=== PATIENT | female | born 1975 | race Caucasian/White ===

== ENCOUNTER → 2020-05-24 13:12 | Outpatient (BNVA) | payer BC, OTHER, SELFPAY | PROVIDERS: Family Provider Nurse Practitioner; PCP Nurse Practitioner; Visit Provider Nurse Practitioner Family | DX: Z11.59 Encounter for screening for other viral diseases (principal); Z20.828 Contact with and (suspected) exposure to other viral communicable diseases; J06.9 Acute upper respiratory infection, unspecified | CPT/HCPCS: 87635 ==

== ENCOUNTER → 2021-06-06 15:55 | Outpatient (BNVA) | payer BC, OTHER, SELFPAY | PROVIDERS: Family Provider Nurse Practitioner; PCP Nurse Practitioner; Visit Provider Nurse Practitioner | DX: E11.65 Type 2 diabetes mellitus with hyperglycemia (principal) | CPT/HCPCS: 80053; 80061; 81000; 83036; 83721; 85025 ==

== ENCOUNTER → 2021-10-17 11:28 | Outpatient (BNVA) | payer BC, OTHER, SELFPAY | PROVIDERS: Family Provider Nurse Practitioner; PCP Nurse Practitioner; Visit Provider Nurse Practitioner | DX: E11.65 Type 2 diabetes mellitus with hyperglycemia (principal); G43.909 Migraine, unspecified, not intractable, without status migrainosus; I10 Essential (primary) hypertension; F41.8 Other specified anxiety disorders; R59.0 Localized enlarged lymph nodes | CPT/HCPCS: 80053; 80061; 83036 ==

== ENCOUNTER → 2022-01-24 13:41 | Outpatient (BNVA) | payer BC, OTHER, SELFPAY | PROVIDERS: Family Provider Nurse Practitioner; PCP Nurse Practitioner; Visit Provider Nurse Practitioner | DX: E11.65 Type 2 diabetes mellitus with hyperglycemia (principal); Z79.4 Long term (current) use of insulin; E55.9 Vitamin D deficiency, unspecified; G43.909 Migraine, unspecified, not intractable, without status migrainosus; I10 Essential (primary) hypertension; F41.8 Other specified anxiety disorders; M77.50 Other enthesopathy of unspecified foot and ankle; R59.0 Localized enlarged lymph nodes | CPT/HCPCS: 80053; 82306; 83036 ==

== ENCOUNTER 2022-04-12 14:38 | Outpatient (CLI) | payer BC, OTHER, SELFPAY ==
--- NOTE | 2022-04-12 14:45 | CT_ITS ---
WS: [id number] CT NECK TECHNIQUE: Contrast-enhanced CT of the neck with coronal and sagittal reformatted images. CLINICAL INFORMATION: R59.0 - Localized enlarged lymph nodes COMPARISON: Ultrasound thyroid and CT July 16, 2017 DLP: 299.[address] scans at [facility] [place] use at least one of these dose optimization techniques: automated e xposure control; mA and/or kV adjustment per patient size (includes targeted exams where dose is matc hed to clinical indication); or iterative reconstruction. FINDINGS: Reported palpable abnormality over the RIGHT proximal clavicle. Palpable marker in this area. RIGHT c lavicle is normal in appearance. AC joint is not included on this examination. Normal sternoclavicula r joint. Tiny lymph node or serpiginous vein in this area deep to the palpable marker. No underlying suspicious abnormalities in this area. Normal underlying sternocleidomastoid. Heterogeneous dense bilateral parotid glands with intraparotid lymph nodes.Correlation with history o f Sjogren's syndrome. Normal submandibular glands. Incidental intraparotid lymph node similar to 2017 . Normal posterior nasopharynx. Normal parapharyngeal fat. Submandibular glands are normal. A few pro minent submandibular lymph nodes also similar to previous. Normal vallecula and piriform sinuses. No evidence of supraglottic or glottic mass. Multinodular thyroid similar to the prior examinations. Keegan cified RIGHT thyroid nodule. Lung apices are well aerated. Prominent cervical chain lymph nodes although not pathologically enlarg ed. This is similar to 2017. Small sclerotic lesion in the C7 vertebral body is stable. CT/CT neck w con* [id number] IMPRESSION: 1. In the area of palpable concern, RIGHT lower neck, no suspicious underlying abnormalities. Tiny incidental underlying tortuous vein or lymph node. Underly ing clavicle is normal. No suspicious abnormalities in this area. 2. No other significant changes compared to previous. 3. Heterogeneous dense bilateral parotid glands with prominent intraparotid ly mph nodes similar to the prior examination. This is nonspecific and may be inci dental but can be seen with Sjogren's syndrome or chronic parotiditis 4. No evidence of supraglottic or glottic mass. 5. Multinodular thyroid. 6. No pathologic cervical lymphadenopathy.
[2022-04-12] MEDS: iohexol 350 mg/mL 100 mL Btl IV (14:58)
== END 2022-04-12 14:39 | disposition home or self-care (01) ==
LOC: RAD 14:43
PROVIDERS: PCP Nurse Practitioner; Visit Provider Nurse Practitioner
DX: R59.0 Localized enlarged lymph nodes (principal); E04.2 Nontoxic multinodular goiter
CPT/HCPCS: 70491

== ENCOUNTER → 2022-06-20 14:42 | Outpatient (BNVA) | payer BC, OTHER, SELFPAY | PROVIDERS: PCP Nurse Practitioner; Visit Provider Nurse Practitioner | DX: E11.65 Type 2 diabetes mellitus with hyperglycemia (principal); E55.9 Vitamin D deficiency, unspecified; Z79.4 Long term (current) use of insulin | CPT/HCPCS: 80053; 80061; 82306; 83036; 83721 ==

== ENCOUNTER → 2022-06-28 13:40 | Outpatient (BNVA) | payer BC, OTHER, SELFPAY | PROVIDERS: PCP Nurse Practitioner; Visit Provider Podiatrist Foot & Ankle Surgery | DX: M76.61 Achilles tendinitis, right leg (principal); E11.65 Type 2 diabetes mellitus with hyperglycemia; Z79.4 Long term (current) use of insulin | CPT/HCPCS: 73630 ==

== ENCOUNTER → 2022-09-19 16:41 | Outpatient (BNVA) | payer BC, OTHER, SELFPAY | PROVIDERS: PCP Nurse Practitioner; Visit Provider Nurse Practitioner | DX: E11.65 Type 2 diabetes mellitus with hyperglycemia (principal); Z79.4 Long term (current) use of insulin | CPT/HCPCS: 80053; 80061; 81000; 83036 ==

== ENCOUNTER → 2022-10-03 15:30 | Outpatient (BNVA) | payer BC, OTHER, SELFPAY | PROVIDERS: PCP Nurse Practitioner; Visit Provider Nurse Practitioner | DX: K62.5 Hemorrhage of anus and rectum (principal) | CPT/HCPCS: 85025 ==

== ENCOUNTER 2022-11-15 05:46 | Day surgery (SDC) | payer BC, OTHER, SELFPAY ==
[2022-11-13 11:55] VITALS: BMI 45.7
[2022-11-15] MEDS: sodium chloride 0.9% 1,000 ML 30 ML IV (06:12)
[2022-11-15 06:14] VITALS: BP 125/81; PULSE 89; RESP 18; TEMP 36.2; O2SAT 97
[2022-11-15 06:23] LABS: Glucose Point of Care 147 mg/dL (70-110)
--- NOTE | 2022-11-15 06:57 | ANES.PREANE2 ---
Pre-Anesthetic Assessment Height/Weight: Height 1.65 m Weight 124.738 kg Temp Pulse Resp BP Pulse Ox O2 Del Method 97.1 F L 89 18 125/81 97 11/15/22 06:14 11/15/22 06:14 11/15/22 06:14 11/15/22 06:14 11/15/22 06:14 11/15/22 06:14 Preop Diagnosis: Hematachezia Operation Date: 11/15/22 07:30 Proposed Procedures p [id number] EGD [id number] Colonoscopy K92.1(Not Applicable) - Marc Doty DO s Colonoscopy(Not Applicable) - Marc Doty DO Was Beta Agatha taken within 24 hours: Yes Was Clonidine taken within 24 hours: N/A Last intake: Intake Last Liquid Date 11/14/22 Last Liquid Time 23:00 Last Solid Date 11/13/22 Last Solid Time 19:00 Social No alcohol and No tobacco Exam alert, oriented x 3, clear to auscultation bilaterally and regular rate & rhythm Airway Submandibular: within normal limits Cervical ROM: within normal limits Mallampati: Class II Dentition: full History/ROS No significant history except as noted and No significant complaints Pulmonary None reported CV/HEM Hypertension None reported Hepatic None reported GI None reported Metabolic Diabetes Mellitus and Morbid Obesity [facility] [place]/[facility] None reported Neuropsych None reported Anesthetic Plan ASA status: 3 Anesthesia: Anesthesia Evaluation and MAC Risk of > 500 ml blood loss (7ml/kg in children): No Medications/Allergies Home Medications Medication Instructions Recorded Confirmed Last Taken Type pen needle, diabetic 33 gauge x #100 ea 11/06/21 11/15/22 11/14/22 Rx 5/32 CPAP machine and supplies #1 ea 06/20/22 11/15/22 11/14/22 Rx atorvastatin 40 mg tablet (Lipitor) 40 mg PO DAILY #30 tabs 09/19/22 11/15/22 11/14/22 Rx bupropion HCl 150 mg tablet,12 hr 150 mg PO BID #60 tabs 09/19/22 11/15/22 11/14/22 Rx sustained-release (Wellbutrin SR) dapagliflozin 5 mg tablet (Farxiga) 5 mg PO QAM #30 tabs 09/19/22 11/15/22 11/14/22 Rx doxepin 10 mg capsule 10 mg PO TID #90 caps 09/19/22 11/15/22 11/14/22 Rx fenofibrate nanocrystallized 145 145 mg PO DAILY #30 tabs 09/19/22 11/15/22 11/14/22 Rx mg tablet (Tricor) fluconazole 150 mg tablet 150 mg PO .monthly #1 tab 09/19/22 11/15/22 11/14/22 Rx (Diflucan) fluoxetine 20 mg capsule (Prozac) 20 mg PO BID #60 caps 09/19/22 11/15/22 11/14/22 Rx icosapent ethyl 1 gram capsule 2 g PO BID #120 caps 09/19/22 11/15/22 11/14/22 Rx (Vascepa) insulin detemir U-100 100 unit/mL 60 unit (0.6 mL) SUBCUT DAILY #15 09/19/22 11/15/22 11/14/22 Rx (3 mL) subcutaneous pen (Levemir mL FlexTouch U-100 Insulin) lisinopril 40 mg tablet 40 mg PO DAILY #30 tabs 09/19/22 11/15/22 11/14/22 Rx magnesium oxide 400 mg PO BID #60 tabs 09/19/22 11/15/22 11/14/22 Rx propranolol 160 mg capsule,24 160 mg PO DAILY #30 caps 09/19/22 11/15/22 11/15/22 Rx hr,extended release (Inderal LA) tirzepatide 15 mg/0.5 mL 15 mg (0.5 mL) SUBCUT .weekly #2 mL 09/19/22 11/15/22 11/14/22 Rx subcutaneous pen injector (Lucian) pantoprazole 40 mg tablet,delayed 40 mg PO BID 6 weeks #84 tabs 10/13/22 11/15/22 11/14/22 Rx release (Protonix) cholecalciferol (vitamin D3) 125 125 mcg PO BID 11/13/22 11/15/22 11/14/22 History mcg (5,000 unit) capsule Allergies Allergy/AdvReac Type Severity Reaction Status Date / Time No Known Allergies Allergy Verified 11/15/22 06:12 Current Medications Generic Name Dose Route Start Last Admin Trade Name Freq PRN Reason Stop Dose Admin Sodium Chloride 1,000 mls @ 30 mls/hr 11/15/22 06:00 11/15/22 06:12 Sodium Chloride 0.9% IV 11/16/22 05:59 30 mls/hr .Q24H LOUIE Administration PFSH Anesthesia Medical History Benign hypertension Bilateral foot pain Diabetes mellitus with hyperglycemia, with long-term current use of insulin Migraine Situational anxiety Surgical History History of carpal tunnel surgery right hand History of endometrial ablation 2010 Family History Other Cancer Dementia Diabetes Hypertension Lung disease Stroke Denies family history of Chronic kidney disease (CKD) Social History Smoking and tobacco status: never smoked Second hand smoke exposure: No Smoking risk assessment/counseling performed?: No Alcohol intake: never Desire information about alcohol rehabilitation?: No Counseling given: No Desire information about substance/drug rehabilitation?: No Counseling given: No Adopted: No Caregiver/support person: No Lives independently: Yes Household members: spouse and children Housing: House Marital status: Number of children: 2 service: No Current occupational status: employed Current occupation: [employer] Current occupational exposures/hazards: No Pets and animals: Yes Pets & animals: cat(s) and dog(s) Current gender identity: Female Data Anesthesia Cardiac Studies: No Data to Display
--- NOTE | 2022-11-15 07:49 | P.HP_ITS ---
Providers/Chief Complaint Primary Care Provider: ROSA MARIA Teresa Chief Complaint: K92.1 History of Present Illness Brenda Ya is a 47 year old female here for EGD and colonoscopy Medications/Allergies Home Medications Medication Instructions Recorded Confirmed Last Taken Type pen needle, diabetic 33 gauge x #100 ea 11/06/21 11/15/22 11/14/22 Rx 5/32 CPAP machine and supplies #1 ea 06/20/22 11/15/22 11/14/22 Rx atorvastatin 40 mg tablet (Lipitor) 40 mg PO DAILY #30 tabs 09/19/22 11/15/22 11/14/22 Rx bupropion HCl 150 mg tablet,12 hr 150 mg PO BID #60 tabs 09/19/22 11/15/22 11/14/22 Rx sustained-release (Wellbutrin SR) dapagliflozin 5 mg tablet (Farxiga) 5 mg PO QAM #30 tabs 09/19/22 11/15/22 11/14/22 Rx doxepin 10 mg capsule 10 mg PO TID #90 caps 09/19/22 11/15/22 11/14/22 Rx fenofibrate nanocrystallized 145 145 mg PO DAILY #30 tabs 09/19/22 11/15/22 11/14/22 Rx mg tablet (Tricor) fluconazole 150 mg tablet 150 mg PO .monthly #1 tab 09/19/22 11/15/22 11/14/22 Rx (Diflucan) fluoxetine 20 mg capsule (Prozac) 20 mg PO BID #60 caps 09/19/22 11/15/22 11/14/22 Rx icosapent ethyl 1 gram capsule 2 g PO BID #120 caps 09/19/22 11/15/22 11/14/22 Rx (Vascepa) insulin detemir U-100 100 unit/mL 60 unit (0.6 mL) SUBCUT DAILY #15 09/19/22 11/15/22 11/14/22 Rx (3 mL) subcutaneous pen (Levemir mL FlexTouch U-100 Insulin) lisinopril 40 mg tablet 40 mg PO DAILY #30 tabs 09/19/22 11/15/22 11/14/22 Rx magnesium oxide 400 mg PO BID #60 tabs 09/19/22 11/15/22 11/14/22 Rx propranolol 160 mg capsule,24 160 mg PO DAILY #30 caps 09/19/22 11/15/22 11/15/22 Rx hr,extended release (Inderal LA) tirzepatide 15 mg/0.5 mL 15 mg (0.5 mL) SUBCUT .weekly #2 mL 09/19/22 11/15/22 11/14/22 Rx subcutaneous pen injector (Mounjaro) pantoprazole 40 mg tablet,delayed 40 mg PO BID 6 weeks #84 tabs 10/13/22 11/15/22 11/14/22 Rx release (Protonix) cholecalciferol (vitamin D3) 125 125 mcg PO BID 11/13/22 11/15/22 11/14/22 History mcg (5,000 unit) capsule Allergies Allergy/AdvReac Type Severity Reaction Status Date / Time No Known Allergies Allergy Verified 11/15/22 06:12 PFSH Acute PFSH: Medical History Benign hypertension Bilateral foot pain Diabetes mellitus with hyperglycemia, with long-term current use of insulin Migraine Situational anxiety Surgical History History of carpal tunnel surgery right hand History of endometrial ablation 2010 Family History Other Cancer Dementia Diabetes Hypertension Lung disease Stroke Denies family history of Chronic kidney disease (CKD) Social History Smoking and tobacco status: never smoked Second hand smoke exposure: No Smoking risk assessment/counseling performed?: No Alcohol intake: never Desire information about alcohol rehabilitation?: No Counseling given: No Desire information about substance/drug rehabilitation?: No Counseling given: No Adopted: No Caregiver/support person: No Lives independently: Yes Household members: spouse and children Housing: House Marital status: Number of children: 2 service: No Current occupational status: employed Current occupation: [employer] Current occupational exposures/hazards: No Pets and animals: Yes Pets & animals: cat(s) and dog(s) Current gender identity: Female Vitals/I&O/Wt Last Vital Signs Temp 97.1 F L 11/15/22 06:14 Pulse 89 11/15/22 06:14 Resp 18 11/15/22 06:14 BP 125/81 11/15/22 06:14 Pulse Ox 97 11/15/22 06:14 O2 Del Method 11/15/22 06:14 Weight last 48 hrs Weight 275 lb A&P Assessment and plan (1) Colon cancer screening: (2) GERD (gastroesophageal reflux disease): (3) Blood per rectum: Plan EGD and colonoscopy Attestations Medical Necessity Statement*: Home Coding Level of Care Code Acute Code for Chg Fwd Diagnoses Colon cancer screening Z12.11 GERD (gastroesophageal reflux disease) K21.9 Blood per rectum K62.5
[2022-11-15 08:48] VITALS: BP 104/66; PULSE 83; RESP 16; TEMP 36.1; O2SAT 92
[2022-11-15 09:07] VITALS: BP 106/72; PULSE 81; RESP 16; O2SAT 96
--- NOTE | 2022-11-15 10:32 | PC.NURSE ---
Rad unable to do barium enema today. Dr Doty stated to just repeat colonoscopy in one year. Education provided to patient. Clinic nurse Roz notified and will call patient with one year follow-up. Pt agreeable to plan.
--- NOTE | 2022-11-15 13:13 | ANE.PACU2 ---
Inpatient post-anesthesia follow up: Airway intact: Yes Vital signs: Temperature 97 F Pulse Rate 81 Respiratory Rate 16 Blood Pressure 106/72 Pulse Oximetry 96 Oxygen Delivery Me thod Room Air Oxygen Flow Rate 6 Fraction of Inspir ed Oxygen Hydration adequate: Yes Nausea and vomiting: No Pain level: 1 Mental status: Baseline
== END 2022-11-15 10:32 | disposition home or self-care (01) ==
PROVIDERS: PCP Nurse Practitioner; Visit Provider Surgery
PROC: 0DJ08ZZ Inspection of Upper Intestinal Tract, Via Natural or Artificial Opening Endoscopic (ICD-10-PCS; CPT 43235; principal; 2022-11-15 07:30)
PROC: 0DJD8ZZ Inspection of Lower Intestinal Tract, Via Natural or Artificial Opening Endoscopic (ICD-10-PCS; CPT 45378; 2022-11-15 07:30)
DX: K92.1 Melena (principal); I10 Essential (primary) hypertension; E11.9 Type 2 diabetes mellitus without complications; E66.01 Morbid (severe) obesity due to excess calories; Z68.42 Body mass index [BMI] 45.0-49.9, adult; Z79.4 Long term (current) use of insulin; K21.9 Gastro-esophageal reflux disease without esophagitis
CPT/HCPCS: 36416; 43239; 45378; 82962; 88305; J2704; J7030

== ENCOUNTER 2022-12-21 15:15 | Outpatient (CLI) | payer BC, OTHER, SELFPAY ==
--- NOTE | 2022-12-21 15:25 | MM_ITS ---
WS: [id number] BILATERAL 3D TOMOSYNTHESIS DIGITAL SCREENING MAMMOGRAPHY WITH CAD CLINICAL INFORMATION: Z12.39 - Encounter for other screening for malignant neop... HISTORY: Screening mammogram. No current complaints. COMPARISON: None. TECHNIQUE: Bilateral CC and MLO views. FINDINGS: Scattered fibroglandular densities bilaterally. No suspicious focal mass, asymmetry, calcifications, or architectural distortion. No evidence of malignancy. A few tiny punctate calcifications. MM/[place] [id number] IMPRESSION: BI-RADS: 2-Benign FOLLOW UP: 1 Year Follow-up Recommend return to annual screening mammography.
== END 2022-12-21 15:16 | disposition home or self-care (01) ==
LOC: RAD 15:23
PROVIDERS: PCP Nurse Practitioner; Visit Provider Nurse Practitioner
DX: Z12.39 Encounter for other screening for malignant neoplasm of breast (principal); E11.65 Type 2 diabetes mellitus with hyperglycemia; Z79.4 Long term (current) use of insulin
CPT/HCPCS: 77063; 77067; 80053; 80061; 81000; 83036; 84443

== ENCOUNTER → 2023-02-27 11:53 | Outpatient (BNVA) | payer BC, OTHER, SELFPAY | PROVIDERS: PCP Nurse Practitioner; Visit Provider Nurse Practitioner | DX: E11.65 Type 2 diabetes mellitus with hyperglycemia (principal); Z79.4 Long term (current) use of insulin | CPT/HCPCS: 80053; 80061; 81000; 83036 ==

== ENCOUNTER → 2023-05-22 14:11 | Outpatient (BNVA) | payer BC, OTHER, SELFPAY | PROVIDERS: PCP Nurse Practitioner; Visit Provider Nurse Practitioner | DX: E11.65 Type 2 diabetes mellitus with hyperglycemia (principal); Z79.4 Long term (current) use of insulin; F41.8 Other specified anxiety disorders; K21.9 Gastro-esophageal reflux disease without esophagitis; E78.2 Mixed hyperlipidemia; I10 Essential (primary) hypertension; G43.909 Migraine, unspecified, not intractable, without status migrainosus; B37.2 Candidiasis of skin and nail | CPT/HCPCS: 80053; 81000; 83036 ==

== ENCOUNTER → 2023-08-15 13:58 | Outpatient (BNVA) | payer BC, OTHER, SELFPAY | PROVIDERS: PCP Nurse Practitioner; Visit Provider Nurse Practitioner | DX: E11.65 Type 2 diabetes mellitus with hyperglycemia (principal); Z79.4 Long term (current) use of insulin; I10 Essential (primary) hypertension | CPT/HCPCS: 80053; 81000; 82607; 83036; 84443 ==

== ENCOUNTER 2024-01-23 09:30 | Day surgery (SDC) | payer BC, OTHER, SELFPAY ==
[2024-01-23 09:45] VITALS: BMI 44.9
[2024-01-23 09:51] VITALS: BP 163/91; PULSE 93; RESP 18; TEMP 36.6; O2SAT 96
[2024-01-23] MEDS: sodium chloride 0.9% 1,000 ML 30 ML IV (09:54)
[2024-01-23 10:00] LABS: Glucose Point of Care 185 mg/dL (70-110)
--- NOTE | 2024-01-23 10:08 | P.HP_ITS ---
Providers/Chief Complaint Primary Care Provider: ROSA MARIA Teresa Chief Complaint: Z12.11 History of Present Illness Brenda aY is a 48 year old female Review of Systems General: Reports: 10 or more systems reviewed and unremarkable except in HPI and below Medications/Allergies Home Medications Medication Instructions Recorded Confirmed Last Taken Type CPAP machine and supplies #1 ea 06/20/22 12/06/23 01/21/24 Rx cholecalciferol (vitamin D3) 125 125 mcg PO BID 11/13/22 01/21/24 01/22/24 History mcg (5,000 unit) capsule flash glucose sensor (FreeStyle #2 ea 01/09/23 12/06/23 01/21/24 Rx Arvin 2 Sensor kit) magnesium oxide 400 mg PO BID #60 tabs 02/27/23 01/21/24 01/22/24 Rx atorvastatin 40 mg tablet (Lipitor) 40 mg PO DAILY #30 tabs 08/15/23 01/21/24 01/22/24 Rx bupropion HCl 150 mg tablet,12 hr 150 mg PO BID #60 tabs 08/15/23 01/21/24 0 01/22/24 Rx sustained-release (Wellbutrin SR) doxepin 10 mg capsule 10 mg PO TID #90 caps 08/15/23 01/21/24 01/22/24 Rx famotidine 40 mg tablet (Pepcid) 40 mg PO DAILY #30 tabs 08/15/23 01/21/24 01/22/24 Rx fenofibrate nanocrystallized 145 145 mg PO DAILY #30 tabs 08/15/23 01/21/24 01/22/24 Rx mg tablet (Tricor) fluconazole 150 mg tablet 150 mg PO .monthly #1 tab 08/15/23 01/21/24 Unknown Rx fluoxetine 20 mg capsule (Prozac) 20 mg PO BID #60 caps 08/15/23 01/21/24 01/22/24 Rx icosapent ethyl 1 gram capsule 2 g (2 x 1 gram) PO BID #120 caps 08/15/23 01/21/24 01/22/24 Rx (Vascepa) lisinopril 40 mg tablet 40 mg PO DAILY #30 tabs 08/15/23 01/21/24 01/22/24 Rx pen needle, diabetic 33 gauge x #100 ea 08/15/23 12/06/23 01/21/24 Rx /32 propranolol 160 mg capsule,24 160 mg PO DAILY #30 caps 08/15/23 01/21/24 01/22/24 Rx hr,extended release (Inderal LA) dapagliflozin propanediol 5 mg 5 mg PO QAM #30 tabs 01/07/24 01/21/24 01/22/24 Rx tablet (Farxiga) dulaglutide 4.5 mg/0.5 mL 4.5 mg (0.5 mL) SUBCUT .weekly #2 01/07/24 01/21/24 12/12/23 Rx subcutaneous pen injector mL (Trulicity) insulin glargine 100 unit/mL (3 60 unit SUBCUT DAILY 01/21/24 01/21/24 01/22/24 History mL) subcutaneous pen (Lantus Solostar U-100 Insulin) Allergies Allergy/AdvReac Type Severity Reaction Status Date / Time No Known Allergies Allergy Verified 12/06/23 13:40 PFSH Acute PFSH: Medical History Bilateral foot pain Diabetes mellitus with hyperglycemia, with long-term current use of insulin Situational anxiety Migraine Benign hypertension Surgical History History of endometrial ablation 2011 History of carpal tunnel surgery right hand Family History Other Cancer Dementia Diabetes Hypertension Lung disease Stroke Denies family history of Chronic kidney disease (CKD) Social History Smoking and tobacco/nicotine status: never used tobacco/nicotine Second hand smoke exposure: No Alcohol intake: never Substance/Drug Use: never Adopted: No Caregiver/support person: No Lives independently: Yes Household members: spouse and children Housing: House Marital status: Number of children: 2 service: No Current occupational status: employed Current occupation: [employer] Current occupational exposures/hazards: No Pets and animals: Yes Pets & animals: cat(s) and dog(s) Do you think of yourself as: Straight/Heterosexual Current gender identity: Female Vitals/I&O/Wt Last Vital Signs Temp 97.8 F 01/23/24 09:51 Pulse 93 01/23/24 09:51 Resp 18 01/23/24 09:51 BP 163/91 01/23/24 09:51 Pulse Ox 96 01/23/24 09:51 O2 Del Method Room Air 01/23/24 09:51 Weight last 48 hrs Weight 270 lb A&P Assessment and plan (1) Colon cancer screening: Plan Colonoscopy Attestations Medical Necessity Statement*: Home Coding Level of Care Code Acute Code for Chg Fwd Diagnoses Colon cancer screening Z12.11
--- NOTE | 2024-01-23 10:08 | P.ANESASSM_ITS ---
Pre-Anesthetic Assessment Height/Weight: Height 1.65 m Weight 122.47 kg Temp Pulse Resp BP Pulse Ox O2 Del Method 97.8 F 93 18 163/91 96 Room Air 01/23/24 09:51 01/23/24 09:51 01/23/24 09:51 01/23/24 09:51 01/23/24 09:51 01/23/24 09:51 Preop Diagnosis: screening Operation Date: 01/23/24 10:30 Proposed Procedures p Colonoscopy 16721, G0105, Z12.11(Not Applicable) - Marc Doty, DO Was Beta Agatha taken within 24 hours: Yes Was Clonidine taken within 24 hours: N/A Last intake: Intake Last Liquid Date 01/22/24 Last Liquid Time 22:00 Last Solid Date 01/21/24 Last Solid Time 21:00 Social No alcohol and No tobacco Exam alert, oriented x 3, clear to auscultation bilaterally and regular rate & rhythm Airway Submandibular: within normal limits Cervical ROM: within normal limits Mallampati: Class I Dentition: chipped Comments: Comments: front teeth corners chipped History/ROS No significant history except as noted and No significant complaints Pulmonary Sleep Apnea CV/HEM Hypertension None reported Hepatic None reported GI Gastroesophageal Reflux Disease controlled Metabolic Diabetes Mellitus, Hyperlipidemia and Morbid Obesity [facility] None reported Neuropsych Anxiety and Depression Anesthetic Plan ASA status: 3 Anesthesia: Anesthesia Evaluation and MAC Risk of > 500 ml blood loss (7ml/kg in children): Yes, adequate IV access and fluids planned Medications/Allergies Home Medications Medication Instructions Recorded Confirmed Last Taken Type CPAP machine and supplies #1 ea 06/20/22 12/06/23 01/21/24 Rx cholecalciferol (vitamin D3) 125 125 mcg PO BID 11/13/22 01/21/24 01/22/24 History mcg (5,000 unit) capsule flash glucose sensor (FreeStyle #2 ea 01/09/23 12/06/23 01/21/24 Rx Arvin 2 Sensor kit) magnesium oxide 400 mg PO BID #60 tabs 02/27/23 01/21/24 01/22/24 Rx atorvastatin 40 mg tablet (Lipitor) 40 mg PO DAILY #30 tabs 08/15/23 01/21/24 01/22/24 Rx bupropion HCl 150 mg tablet,12 hr 150 mg PO BID #60 tabs 08/15/23 01/21/24 01/22/24 Rx sustained-release (Wellbutrin SR) doxepin 10 mg capsule 10 mg PO TID #90 caps 08/15/23 01/21/24 01/22/24 Rx famotidine 40 mg tablet (Pepcid) 40 mg PO DAILY #30 tabs 08/15/23 01/21/24 01/22/24 Rx fenofibrate nanocrystallized 145 145 mg PO DAILY #30 tabs 08/15/23 01/21/24 01/22/24 Rx mg tablet (Tricor) fluconazole 150 mg tablet 150 mg PO .monthly #1 tab 08/15/23 01/21/24 Unknown Rx fluoxetine 20 mg capsule (Prozac) 20 mg PO BID #60 caps 08/15/23 01/21/24 01/22/24 Rx icosapent ethyl 1 gram capsule 2 g (2 x 1 gram) PO BID #120 caps 08/15/23 01/21/24 01/22/24 Rx (Vascepa) lisinopril 40 mg tablet 40 mg PO DAILY #30 tabs 08/15/23 01/21/24 01/22/24 Rx pen needle, diabetic 33 gauge x #100 ea 08/15/23 12/06/23 01/21/24 Rx 5/32 propranolol 160 mg capsule,24 160 mg PO DAILY #30 caps 08/15/23 01/21/24 01/22/24 Rx hr,extended release (Inderal LA) dapagliflozin propanediol 5 mg 5 mg PO QAM #30 tabs 01/07/24 01/21/24 01/22/24 Rx tablet (Farxiga) dulaglutide 4.5 mg/0.5 mL 4.5 mg (0.5 mL) SUBCUT .weekly #2 01/07/24 01/21/24 12/12/23 Rx subcutaneous pen injector mL (Trulicity) insulin glargine 100 unit/mL (3 60 unit SUBCUT DAILY 01/21/24 01/21/24 01/22/24 History mL) subcutaneous pen (Lantus Solostar U-100 Insulin) Allergies Allergy/AdvReac Type Severity Reaction Status Date / Time No Known Allergies Allergy Verified 12/06/23 13:40 Current Medications Generic Name Dose Route Start Last Admin Trade Name Freq PRN Reason Stop Dose Admin Sodium Chloride 1,000 mls @ 30 mls/hr 01/23/24 09:45 01/23/24 09:54 Sodium Chloride 0.9% IV 01/24/24 09:44 30 mls/hr .Q24H LOUIE Administration PFSH Anesthesia Medical History Bilateral foot pain Diabetes mellitus with hyperglycemia, with long-term current use of insulin Situational anxiety Migraine Benign hypertension Surgical History History of endometrial ablation 2010 History of carpal tunnel surgery right hand Family History Other Cancer Dementia Diabetes Hypertension Lung disease Stroke Denies family history of Chronic kidney disease (CKD) Social History Smoking and tobacco/nicotine status: never used tobacco/nicotine Second hand smoke exposure: No Alcohol intake: never Substance/Drug Use: never Adopted: No Caregiver/support person: No Lives independently: Yes Household members: spouse and children Housing: House Marital status: Number of children: 2 service: No Current occupational status: employed Current occupation: [employer] Current occupational exposures/hazards: No Pets and animals: Yes Pets & animals: cat(s) and dog(s) Do you think of yourself as: Straight/Heterosexual Current gender identity: Female Data Anesthesia Cardiac Studies: No Data to Display
[2024-01-23 10:09] LABS: OR HCG Qualitative Urine Negative (Negative)
[2024-01-23 10:31] VITALS: BP 127/83; PULSE 83; RESP 14; TEMP 36.3; O2SAT 96
[2024-01-23 10:39] VITALS: BP 125/71; PULSE 81; RESP 17; O2SAT 96
--- NOTE | 2024-01-23 15:41 | ANE.PACU2 ---
Inpatient post-anesthesia follow up: Airway intact: Yes Vital signs: Temperature 97.4 F Pulse Rate 81 Respiratory Rate 17 Blood Pressure 125/71 Pulse Oximetry 96 Oxygen Delivery Me thod Room Air Oxygen Flow Rate Fraction of Inspir ed Oxygen Hydration adequate: Yes Nausea and vomiting: No Pain level: 2 Mental status: Baseline
== END 2024-01-23 11:02 | disposition home or self-care (01) ==
PROVIDERS: Anesthesiology; PCP Nurse Practitioner; Visit Provider Surgery
PROC: 0DJD8ZZ Inspection of Lower Intestinal Tract, Via Natural or Artificial Opening Endoscopic (ICD-10-PCS; CPT 45378; principal; 2024-01-23 10:30)
DX: Z12.11 Encounter for screening for malignant neoplasm of colon (principal); I10 Essential (primary) hypertension; K57.30 Diverticulosis of large intestine without perforation or abscess without bleeding; K21.9 Gastro-esophageal reflux disease without esophagitis; E78.5 Hyperlipidemia, unspecified; E11.65 Type 2 diabetes mellitus with hyperglycemia; E66.01 Morbid (severe) obesity due to excess calories; Z79.4 Long term (current) use of insulin
CPT/HCPCS: 36416; 45378; 81025; 82962; J2704; J7030

== ENCOUNTER → 2024-02-04 14:16 | Outpatient (BNVA) | payer BC, OTHER, SELFPAY | PROVIDERS: PCP Nurse Practitioner; Visit Provider Nurse Practitioner | DX: E11.9 Type 2 diabetes mellitus without complications (principal) | CPT/HCPCS: 80053; 80061; 81000; 83036 ==

== ENCOUNTER → 2024-04-21 14:09 | Outpatient (BNVA) | payer BC, OTHER, SELFPAY | PROVIDERS: PCP Nurse Practitioner; Visit Provider Nurse Practitioner | DX: E11.9 Type 2 diabetes mellitus without complications (principal) | CPT/HCPCS: 80053; 81000; 83036 ==

== ENCOUNTER → 2024-07-07 14:53 | Outpatient (BNVA) | payer BC, OTHER, SELFPAY | PROVIDERS: PCP Nurse Practitioner; Visit Provider Nurse Practitioner | DX: E11.9 Type 2 diabetes mellitus without complications (principal) | CPT/HCPCS: 80053; 83036 ==

== ENCOUNTER 2024-07-16 15:04 | Outpatient (CLI) | payer BC, OTHER, SELFPAY ==
--- NOTE | 2024-07-16 15:06 | XR_ITS ---
WS: [id number] XR knee LT 3V* [id number] REASON FOR EXAM: M25.562 - Pain in left knee FINDINGS: Possible joint effusion. No fracture or focal bone lesion. Minimal narrowing of the medial knee joint space with minimal osteophytosis and subchondral sclerosis . Lateral knee joint space is intact and well preserved. Patellofemoral joint space is intact without significant narrowing. There is mild subchondral scleros is and osteophytosis of the patella. XR/XR knee LT 3V* [id number] IMPRESSION: Minimal to mild osteoarthritis of the left knee.
== END 2024-07-16 15:05 | disposition home or self-care (01) ==
LOC: RAD 15:05
PROVIDERS: PCP Nurse Practitioner; Visit Provider Nurse Practitioner
DX: M25.562 Pain in left knee (principal)
CPT/HCPCS: 73562

== ENCOUNTER → 2024-09-09 08:33 | Outpatient (BNVA) | payer BC, OTHER, SELFPAY | PROVIDERS: PCP Nurse Practitioner; Visit Provider Student in an Organized Health Care Education/Training Program | DX: M25.562 Pain in left knee (principal); S83.8X2A Sprain of other specified parts of left knee, initial encounter; X50.9XXA Other and unspecified overexertion or strenuous movements or postures, initial encounter | CPT/HCPCS: 73560; 73565 ==

== ENCOUNTER → 2024-09-15 14:18 | Outpatient (BNVA) | payer BC, OTHER, SELFPAY | PROVIDERS: PCP Nurse Practitioner; Visit Provider Nurse Practitioner | DX: E11.65 Type 2 diabetes mellitus with hyperglycemia (principal); Z79.4 Long term (current) use of insulin; E66.01 Morbid (severe) obesity due to excess calories; K21.9 Gastro-esophageal reflux disease without esophagitis; F41.8 Other specified anxiety disorders; E78.2 Mixed hyperlipidemia; I10 Essential (primary) hypertension; G43.909 Migraine, unspecified, not intractable, without status migrainosus; E11.9 Type 2 diabetes mellitus without complications | CPT/HCPCS: 80053; 80061; 83036 ==

== ENCOUNTER 2024-09-23 09:52 | Outpatient (CLI) | payer BC, OTHER, SELFPAY ==
--- NOTE | 2024-09-23 10:00 | USCV_ITS ---
Brenda Ya Age: 49 Gender: F : 1975 Exam Date: 09/23/2024 10:03 Ordering Phys: Genesis Gould Technologist: CT Exam Location: [facility] [place]_ Indication: BP: 128 / 80 HR: 75 Rhythm: Sinus Technical Quality: Adequate MEASUREMENTS (Male / Female) Normal Values 2D ECHO LVOT Diameter 2.0 cm LV Ejection Fraction MOD 4C 53.7 % LV Ejection Fraction MOD 2C 38.5 % LV Ejection Fraction 2C AL 38.5 % LA Diameter 4.0 cm Aorta at Sinotubular Diameter 2.5 cm IVC Diameter 1.9 cm M-MODE LA Ao Ratio MM 2.1 AV Cusp Separation MM 1.7 cm DOPPLER AV Peak Velocity 105.0 cm/s LVOT Peak Velocity 100.0 cm/s AV Area Cont Eq vti 2.9 cm squared AV Area Cont Eq pk 3.0 cm squared MV Peak Velocity 72.0 cm/s MV Area PHT 3.5 cm squared Mitral E to A Ratio 1.0 TR Peak Velocity 178.0 cm/s TR Peak Gradient 12.7 mmHg TV Peak E Velocity 63.0 cm/s PV Peak Velocity 104.0 cm/s FINDINGS Left Ventricle Normal left ventricular size and systolic function, EF 55%. . No regional wall motion abnormalities. Right Ventricle Normal right ventricular size and systolic function. Right Atrium The right atrium is normal in size. Left Atrium The left atrium is normal in size. Mitral Valve Structurally normal mitral valve. Aortic Valve Structurally normal trileaflet aortic valve. Tricuspid Valve Structurally normal tricuspid valve. Pulmonic Valve Mild pulmonary valve regurgitation. Pericardium Normal pericardium without effusion. Aorta Normal ascending aorta dimension. IVC Normal inferior vena cava. CONCLUSIONS Normal left ventricular size and systolic function, EF 55%. No regional wall motion abnormalities. Mild pulmonary valve regurgitation. Normal cardiac chamber sizes There is no pericardial effusion. There are no intracardiac masses. No similar previous studies are available for comparison. Dr Yuni Campo MD [facility] (Electronically Signed) Final Date: 26 September 2024 09:50 S
== END 2024-09-23 09:53 | disposition home or self-care (01) ==
LOC: RAD 09:52
PROVIDERS: PCP Nurse Practitioner; Visit Provider Nurse Practitioner
DX: I10 Essential (primary) hypertension (principal); E11.65 Type 2 diabetes mellitus with hyperglycemia; Z79.4 Long term (current) use of insulin; I37.1 Nonrheumatic pulmonary valve insufficiency
CPT/HCPCS: 93306

== ENCOUNTER 2024-10-07 09:21 | Outpatient (CLI) | payer BC, OTHER, SELFPAY ==
--- NOTE | 2024-10-07 09:30 | MR_ITS ---
WS: [id number] MRI LEFT KNEE HISTORY: Pain since March 2024. Twisting injury. COMPARISON: None available. Anterior cruciate ligament: Increased T2 signal and intermediate signal throughout the ACL. No tear is identified. This is most consistent with intrasubstance degeneration. Posterior cruciate ligament: Intact. Medial collateral ligament: Fluid surrounding the MCL below the knee joint. No tear is identified. Posterior lateral corner structures: Mild thickening and increased intermediate signal in the popliteus tendon. Medial menisci: Complex tear posterior horn extending into the meniscal root. Abnormal signal extends to the inferior and superior articular surfaces. Remaining meniscus is more normal signal. Anterior horn is normal. Lateral meniscus: Intact. Normal signal, size and shape. Extensor mechanism: Distal quadriceps tendon is normal. Mild patellar tendinopathy proximally and distally. Fluid and soft tissue: Small suprapatellar joint effusion. There is a small joint body measuring 5 mm medial to the patella. Mild soft tissue edema anterior to the patella. Tiny amount of fluid near Bakers cyst development. Osseous and articular structures: Patellofemoral compartment: Normal. Medial compartment: Mild narrowing of the medial compartment. No full-thickness cartilage defects. No marrow edema. Lateral compartment: Mild narrowing. No marrow edema or full-thickness cartilage defect. Subchondral cysts at the base of the tibial spines. MR/MR knee LT wo con* [id number] IMPRESSION: 1. Complex tear meniscal root involving the posterior medial meniscus. Tear ex tends to the both the superior and inferior articular surfaces. 2. Intrasubstance degeneration throughout the ACL but no tear identified. 3. Mild MCL sprain. 4. Mild popliteus tendinopathy. 5. Multifocal mild patellar tendinopathy. 6. 5 mm intra-articular body, adjacent to the medial patella. 7. Mild narrowing of the medial and lateral compartments.
== END 2024-10-07 09:22 | disposition home or self-care (01) ==
LOC: RAD 09:22
PROVIDERS: PCP Nurse Practitioner; Visit Provider Student in an Organized Health Care Education/Training Program
DX: S83.242A Other tear of medial meniscus, current injury, left knee, initial encounter (principal); X58.XXXA Exposure to other specified factors, initial encounter; R93.6 Abnormal findings on diagnostic imaging of limbs; S83.412A Sprain of medial collateral ligament of left knee, initial encounter
CPT/HCPCS: 73721

== ENCOUNTER → 2025-01-13 14:21 | Outpatient (BNVA) | payer BC, SELFPAY | PROVIDERS: PCP Nurse Practitioner; Visit Provider Nurse Practitioner | DX: E11.65 Type 2 diabetes mellitus with hyperglycemia (principal); Z79.4 Long term (current) use of insulin | CPT/HCPCS: 80053; 83036 ==

== ENCOUNTER 2025-03-06 09:16 | Outpatient (CLI) | payer BC, SELFPAY ==
--- NOTE | 2025-03-06 09:20 | MM_ITS ---
WS: [id number] BILATERAL SCREENING DIGITAL TOMOSYNTHESIS MAMMOGRAM WITH CAD HISTORY: Z12.31 - Encounter for screening mammogram for malignant ... COMPARISON: 12/21/2022 Bilateral CC and MLO views with tomosynthesis and synthetic mammography submitted. Computer aided detection analyzed. Breast composition: There are scattered areas of fibroglandular density. No suspicious masses, microcalcifications or architectural distortion. Benign calcifications in each breast. MM/MM scr tomosynthesis [id number] IMPRESSION: BI-RADS: 2 - Benign. FOLLOW UP: 1 Year Follow-up
== END 2025-03-06 09:17 | disposition home or self-care (01) ==
LOC: RAD 09:20
PROVIDERS: PCP Nurse Practitioner; Visit Provider Nurse Practitioner
DX: Z12.31 Encounter for screening mammogram for malignant neoplasm of breast (principal); R92.323 Mammographic fibroglandular density, bilateral breasts; R92.1 Mammographic calcification found on diagnostic imaging of breast
CPT/HCPCS: 77063; 77067

== ENCOUNTER → 2025-04-07 13:45 | Outpatient (BNVA) | payer BC, SELFPAY | PROVIDERS: PCP Nurse Practitioner; Visit Provider Nurse Practitioner | DX: Z12.4 Encounter for screening for malignant neoplasm of cervix (principal) | CPT/HCPCS: 88175 ==

== ENCOUNTER 2025-04-17 11:43 | Outpatient (CLI) | payer BC, SELFPAY ==
--- NOTE | 2025-04-17 11:45 | US_ITS ---
WS: [id number] THYROID ULTRASOUND HISTORY: E04.1 - Nontoxic single thyroid nodule COMPARISON: 12/30/2018 Right lobe: 1.8 cm x 1.7 cm x 3.8 cm (w x ap x l). Volume: 5.4 cm3. Normal sized thyroid. Hypoechoic nodule with peripheral calcification in the mid gland and mild increased vascularity. This nodule measures 0.9 x 1.1 x 1.3 cm. There is shadowing posteriorly which is probably due to the wall calcification. Additional hypoechoic nodule with peripheral calcification towards the RIGHT isthmus measures 0.8 x 0.8 x 0.8 cm. Left lobe: 1.6 cm x 1.6 cm x 4.0 cm (w x ap x l). Volume: 5.1 cm3. Normal sized gland. There is a hypoechoic nodule in the mid LEFT thyroid measuring 1.0 x 0.6 x 0.7 cm. No increased vascularity. There is a very small hypoechoic nodule towards the isthmus measuring 0.6 x 0.4 x 0.6 cm. Isthmus: 0.4 cm. US/US thyroid [id number] IMPRESSION: 1. Bilateral thyroid nodules. 2. TI-RADS 4; hypoechoic nodule mid RIGHT thyroid with peripheral calcificatio n. This nodule has been present on prior exams but is more hypoechoic on today' s exam. By history patient has had a biopsy of 1 of these nodules. Recommend co ntinued yearly ultrasound evaluation. This nodule becomes greater in size and 1 .5 cm ultrasound guided biopsy can be obtained. 3. The remaining nodules are either mildly suspicious or benign. These nodules will undergo ultrasound follow-up in concordance with the TI-RADS 4 nodule sammi cribed above.
== END 2025-04-17 11:44 | disposition home or self-care (01) ==
LOC: RAD 11:44
PROVIDERS: PCP Nurse Practitioner; Visit Provider Nurse Practitioner
DX: E04.2 Nontoxic multinodular goiter (principal)
CPT/HCPCS: 76536